=== PATIENT | male | born 1980 | race Caucasian/White ===

== ENCOUNTER 2022-03-25 11:22 | Emergency (ER) | payer OTHER ==
[~2022-03-25] VITALS: Ht 188 cm; Wt 89.8 kg
[2022-03-25] MEDS ORDERED: NORFLEX100MG PO (14:40)
[2022-03-25] MEDS ORDERED: KETO10TA2 PO (14:40)
== END 2022-03-25 15:39 | disposition home or self-care (01) ==
LOC: ER 11:22
DX: M79.642 Pain in left hand (principal); R07.89 Other chest pain; V49.9XXA Car occupant (driver) (passenger) injured in unspecified traffic accident, initial encounter; Y93.9 Activity, unspecified; Y92.413 State road as the place of occurrence of the external cause; Y99.9 Unspecified external cause status